=== PATIENT | female | born 1940 | race Caucasian/White ===

== ENCOUNTER 2022-11-17 21:35 | Emergency (ER) | payer MEDICARE, BC ==
[~2022-11-17] VITALS: Ht 154.9 cm; Wt 57.2 kg
[2022-11-17] MEDS ORDERED: ESCI-9 PO ×2 (22:03→22:05)
[2022-11-17] MEDS ORDERED: CARB1TAB21 PO (22:07)
[2022-11-17] MEDS ORDERED: ESCI20TA44 PO (22:09)
[2022-11-17] MEDS ORDERED: LEVO88TA5 PO (22:11)
[2022-11-17] MEDS ORDERED: CHOL10005 PO (22:13)
[2022-11-17] MEDS ORDERED: ASPI81TA31 PO (22:13)
[2022-11-17] MEDS ORDERED: OMEP20CA15 PO (22:14)
[2022-11-17] MEDS ORDERED: VITA40TA PO (22:15)
[2022-11-17] MEDS ORDERED: CALC-343 PO (22:15)
[2022-11-17] MEDS ORDERED: NIAC-48 PO (22:16)
[2022-11-17] MEDS ORDERED: [UNRECOGNIZED DRUG - CODE] PO (22:19)
[2022-11-17] MEDS ORDERED: MELA10TA PO (22:19)
[2022-11-17] MEDS ORDERED: TRAZ-182 PO (22:20)
[2022-11-17] MEDS ORDERED: MAGN400C PO (22:20)
[2022-11-17] MEDS ORDERED: DONE10TA44 PO (22:21)
[2022-11-17] MEDS ORDERED: AMAN68.5 PO (22:21)
[2022-11-17] MEDS ORDERED: QUET25TA PO (22:22)
[2022-11-17] MEDS ORDERED: HYDR-4209 PO (22:31)
[2022-11-17] MEDS ORDERED: HYDROCODONE/APAP 5-325MG TABLET ONE (22:44)
[2022-11-17] MEDS ORDERED: HYDROCODONE/APAP 5-325MG TABLET PO ONE (22:45)
[2022-11-17 23:17] VITALS: BP 115/64
== END 2022-11-17 22:50 | disposition home or self-care (01) ==
LOC: ER 21:37
DX: S52.531A Colles' fracture of right radius, initial encounter for closed fracture (principal); Z79.82 Long term (current) use of aspirin; Z79.899 Other long term (current) drug therapy; W01.0XXA Fall on same level from slipping, tripping and stumbling without subsequent striking against object, initial encounter; Y93.89 Activity, other specified; Y92.89 Other specified places as the place of occurrence of the external cause; Y99.8 Other external cause status
CPT/HCPCS: 73090; 73110; 73130; A4663